=== PATIENT | male | born 2000 | race Two or more races ===

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

== ENCOUNTER 2022-12-15 18:40 | Emergency (ER) | payer OTHER ==
[~2022-12-15] VITALS: Ht 182.9 cm; Wt 83.9 kg
[2022-12-15 18:59] VITALS: BP 122/78; TEMP 98
[2022-12-15] MEDS ORDERED: POLY10DR LEFTEYE (19:12)
[2022-12-15 19:17] VITALS: O2SAT 100
== END 2022-12-15 19:19 | disposition home or self-care (01) ==
LOC: ER 18:40
DX: H10.9 Unspecified conjunctivitis (principal)